=== PATIENT | female | born 1990 | race Caucasian/White ===

== ENCOUNTER 2019-12-13 04:17 | Day surgery (SDC) | payer BC ==
[2019-12-12 08:57] VITALS: BMI 21.1
--- OUTSIDE RECORDS SUMMARY | 2019-12-13 04:20 | XMS ---
:1990 Author Organization [facility] Support Name Relationship Address Phone UE, UNEMPLOYED Unavailable Unavailable Unavailable UE Unavailable Unavailable Unavailable DEVAUGHN LOZADA [address] [place] [address] DEVAUGHN LOZADA spouse Unavailable Unavailable NONE PER PT, NONE PER PT Unavailable [address] [facility] [phone] [place] [address] Re-disclosure Warning The records that you are about to access may contain information from federally- assisted alcohol or drug abuse programs. If such information is present, then the following federally mandated warning applies: This information has been disclosed to you from records protected by federal confidentiality rules (42 CFR part 2). The federal rules prohibit you from making any further disclosure of this information unless further disclosure is expressly permitted by the written consent of the person to whom it pertains or as otherwise permitted by 42 CFR part 2. A general authorization for the release of medical or other information is NOT sufficient for this purpose. The Federal rules restrict any use of the information to criminally investigate or prosecute any alcohol or drug abuse patient.The records that you are about to access may contain highly sensitive health information, the redisclosure of which is protected by Article 27-F of the [facility] Public Health law. If you continue you may haveaccess to information: Regarding HIV / AIDS; Provided by facilities licensed or operated by the [facility] Office of Mental Health; or Provided by the [facility] Office for People With Developmental Disabilities. If such information is present, then the following [facility] mandated warning applies: This information has been disclosed to you from confidential records which are protected by state law. State law prohibits you from making any further disclosure of this information without the specific written consent of the person to whom it pertains, or as otherwise permitted by law. Any unauthorized further disclosure in violation of state law may result in a fine or senior care sentence or both. A general authorization for the release of medical or other information is NOT sufficient authorization for further disclosure. Insurance Providers Payer name Policy type Policy ID Covered Covered green party's Policy P fely / Coverage green party ID relationship to [place] Inf ormation type [place] OUT OF [id number] S [id number] STATE Medicaid GME Medicaid [id number] 1 [id number] R Medicaid Medicaid [id number] MVP Medicaid Medicaid [id number] 1 [id number] Results ID Date Data Source [id number] 12/08/2019 05:40:00 PM EDT [facility] Name Value Range Interpretation Description Data Sup porting Code Source(s) Document(s ) SARS [facility] coronavirus 2 RNA This lab was ordered by [facility] and reported by [facility]. Procedure
[2019-12-13] MEDS ORDERED: ACETAMINOPHEN 325 MG TABLET (FP) PO PRN (12:08)
[2019-12-13] MEDS ORDERED: IBUPROFEN 400 MG TABLET (FP) PO PRN (12:08)
[2019-12-13] MEDS ORDERED: ONDANSETRON 4 MG/2 ML VIAL IVPUSH PRN (12:09)
--- NOTE | 2019-12-13 12:16 | HP ---
Admitting History and Physical - Admission History of Present Illness: 29 yo with hx/o KIET 2 / high grade dysplasia for LEEP Limitations to Obtaining History: No Limitations - Past Medical History Cardiovascular: No: HTN Pulmonary: No: Asthma ...LMP: 11/23/19 Additional Past Medical History: [employer]: pap smear 09/2019 ASCUS, cannot r/o HGSIL Colposcopy 11/06/2019: 6:00 KIET 1; 12:00CIN 2; 11:00 KIET 2; ECC - minute fragments of dysplastic squamous cells, fragment of benign cervical gland - Past Surgical History Additional Past Surgical History: L thumb surgery at age 11 - Smoking History Smoking history: Never smoked Home Medications - Allergies Allergies/Adverse Reactions: Allergies Allergy/AdvReac Type Severity Reaction Status Date / Time No Known Allergies Allergy Verified 12/13/19 11:06 - Home Medications Home Medications: Ambulatory Orders Elderberry Fruit and Flower [Black Elderberry 575 mg Cap] 1 each PO DAILY 12/13/19 Multivitamins [Tab-A-Vit -] 1 tab PO DAILY 12/13/19 Family Medical History Family History: Denies Review of Systems - Review of Systems Constitutional: reports: No Symptoms Respiratory: reports: No Symptoms Gastrointestinal: reports: No Symptoms Genitourinary: reports: No Symptoms Endocrine: reports: No Symptoms Psychiatric: reports: No Symptoms Physical Examination Vital Signs: Vital Signs Temperature 98.2 F 12/13/19 11:02 Pulse Rate 75 12/13/19 11:02 Respiratory Rate 20 12/13/19 11:02 Blood Pressure 106/68 12/13/19 11:02 O2 Sat by Pulse Oximetry (%) 100 12/13/19 11:02 Constitutional: Yes: Well Nourished, No Distress, Calm Respiratory: Yes: Regular Gastrointestinal: Yes: Normal Bowel Sounds, Soft Edema: No Assessment/Plan 29 yo with KIET 2 - moderate/high grade cervical dysplaisa for LEEP 1. Preop labs reviewed 2. Consents reviewed and signed. Reviewed risks including but not limited to infection, bleeding, damage to vagina and surrounding organs, risk of cervical stenosis and impotence in future pregnancies 3. No antibiotics indicated 4. REviewed postop care, pelvic rest, follow up appointment in 3-4 wks 5. Proceed to OR
[2019-12-13] MEDS ORDERED: LIDOCAINE HCL/PF 2% SDV 5ML VIAL ONE (12:32)
[2019-12-13] MEDS ORDERED: PROPOFOL 20 ML ONE (12:32)
[2019-12-13] MEDS ORDERED: MIDAZOLAM HCL 2 MG/2 ML SINGLE DOSE VIAL ONE (12:33)
[2019-12-13] MEDS ORDERED: DEXAMETHASONE SOD PHOSPHATE 4 MG/1 ML VIAL ONE (12:50)
[2019-12-13] MEDS ORDERED: KETOROLAC TROMETHAMINE 30 MG/1 ML VIAL ONE (12:50)
[2019-12-13] MEDS ORDERED: oxyCODONE HCL 5 MG TABLET PO PRN (13:27)
[2019-12-13] MEDS ORDERED: LACTATED RINGERS SOLUTION 1,000 ML IV SCH (13:30)
--- NOTE | 2019-12-13 14:00 | OP ---
Operative Note - Note: Operative Date: 12/13/19 Pre-Operative Diagnosis: KIET 2; moderate/highgrade dysplasia Findings: acetowhite area at 12, 6; hyperememic area at 12:00 Post-Operative Diagnosis: Same as Pre-op Surgeon: Sommer Aleman Anesthesiologist/CREAM GATHERER: Tammy Verma Anesthesia: General Specimens Removed: cervix at 12, cervix at 6, ECC Estimated Blood Loss (mls): 30 Fluid Volume Replaced (mls): 500 Operative Report Dictated: Yes
[2019-12-13 14:10] VITALS: TEMP 97.3
[2019-12-13 14:51] VITALS: BP 115/70; PULSE 59
--- NOTE | 2019-12-14 15:35 | OP ---
DATE OF OPERATION: 12/13/2019 SURGEON: Flaquito Aleman MD ANESTHESIA: Tammy Verma MD, general anesthesia. SURGERY: Loop electrosurgical excisional procedure and colposcopy. DIAGNOSIS: cervical intraepithelial neoplasia grade 2, moderate and high-grade dysplasia. FLUIDS GIVEN: 500. ESTIMATED BLOOD LOSS: 30. INDICATIONS: The patient is a 29-year-old with a history of KIET-2 on biopsy, for LEEP procedure. Risks, benefits, alternatives, and complications of procedure were discussed, including infection, bleeding, damage to vagina or surrounding organs, risk of cervical incompetence, and cervical stenosis. She expressed understanding and was brought to the operating room. DESCRIPTION: When anesthesia was found to be adequate, patient was prepped and draped in normal sterile fashion in dorsal lithotomy position using Livan stirrups. A coated speculum was placed in the vagina. Acetic acid was placed on the patient's cervix and Lugol's solution was placed on the cervix. Acetowhite area was noted at 12 o'clock. A 2-cm lesion was noted at 12 o'clock. Acetowhite changes were noted at 6 o'clock. A 2 x 1 cm loop electrode was used to excision a portion of the cervix at 12 o'clock and 6 o'clock. Bleeding was noted. Rollerball was used to cauterize the cervical bed. ECC was performed. Monsel's was placed and Surgicel was placed in the patient's cervical bed. All instruments were removed from the patient's vagina. The patient was awoken from anesthesia, brought to the recovery room in stable condition. FLAQUITO ALEMAN M.D. [id number]
--- NOTE | 2019-12-18 15:06 | PATH ---
Surgical Pathology Report Patient Name: TRANG WHITAKER [facility]. Rec. #: [id number] /Age/Gender: 1990 (Age: 29) / F Account: [id number] Location: [facility] SURGICAL Taken: 12/13/2019 Received: 12/14/2019 Reported: 12/18/2019 Physicians: Sommer Aleman Specimen(s) Received A: CERVIX, 12:00 B: CERVIX, 6:00 C: ECC Clinical History Moderate cervical dysplasia Final Diagnosis A. CERVIX, 12:00, LOOP ELECTROSURGICAL EXCISION PROCEDURE (LEEP)/CONE BIOPSY: HIGH GRADE SQUAMOUS INTRAEPITHELIAL LESION (HSIL/ CERVICAL INTRAEPITHELIAL NEOPLASIA 3/KIET 3) WITH GLANDULAR INVOLVEMENT. LOW GRADE SQUAMOUS INTRAEPITHELIAL LESION (LSIL) PRESENT. SURGICAL RESECTION MARGINS: FOCALLY POSITIVE FOR LSIL (ECTOCERVIX), NEGATIVE FOR HSIL. TRANSFORMATION ZONE: PRESENT. SEE COMMENT. B. CERVIX, 6:00, LOOP ELECTROSURGICAL EXCISION PROCEDURE (LEEP)/CONE BIOPSY: HIGH GRADE SQUAMOUS INTRAEPITHELIAL LESION (HSIL/CERVICAL INTRAEPITHELIAL NEOPLASIA 2/KIET 2) WITH FOCAL GLANDULAR INVOLVEMENT. LOW GRADE SQUAMOUS INTRAEPITHELIAL LESION (LSIL) PRESENT. SURGICAL RESECTION MARGINS: CANNOT BE ACCURATELY ASSESSED, SEE COMMENT. TRANSFORMATION ZONE: PRESENT. SEE COMMENT. C. ENDOCERVICAL CURETTINGS, DILATION AND CURETTAGE: FRAGMENTS OF PROLIFERATIVE ENDOMETRIUM AND BENIGN ENDOCERVICAL TISSUE. NO DYSPLASIA IDENTIFIED. Comment: Immunohistochemical stains performed (on blocks A1 and B2) at [facility] [place] [place] ([id number]) and interpreted at [facility] for p16 shows diffuse, strong, positive staining. Ki-67 shows positive nuclear staining focally spanning full thickness of the epithelium. Histomorphology and staining pattern support the above diagnosis. Part B, Margins cannot be accurately assessed due to presence of detached fragments with high grade dysplasia. Suggest clinical correlation. Case seen in intradepartmental review with consensus on diagnosis. Findings discussed with Dr. Aleman, 12/18/2019. Positive and negative controls (internal if applicable) show appropriate results. Electronically Signed Salena Prieto M.D. Gross Description A. Received in formalin labeled "cervix at 12:00," is a 1.8 x 1.4 x 0.7 cm antunez portion of soft tissue, consistent with a portion of cervix. The specimen is inked blue and serially sectioned. The specimen is entirely submitted in 2 cassettes. B. Received in formalin labeled "cervix at 6:00," is a 2.3 x 1.0 x 0.5 cm antunez portion of soft tissue, consistent with a portion of cervix. The specimen is inked blue and serially sectioned. The specimen is entirely and sequentially submitted in 3 cassettes. C. Received in formalin labeled "endocervical curettings," is a 1.2 x 1.0 x 0.2 cm aggregate of antunez-brown soft tissue fragments admixed with blood-tinged mucous. The formalin is filtered and the specimen is entirely submitted in one cassette. 12/14/2019 [facility]12/14/2019
== END 2019-12-13 14:55 | disposition home or self-care (01) ==
LOC: JASU-SURG 04:17
PROVIDERS: ATTEND Obstetrics & Gynecology
PROC: 0UBC7ZX Excision of Cervix, Via Natural or Artificial Opening, Diagnostic (ICD-10-PCS; principal; 2019-12-13 12:00)
DX: D06.0 Carcinoma in situ of endocervix (principal)
CPT/HCPCS: 36415; 84703; 86850; 86900; 86901; 88305-TC; 94760

== ENCOUNTER 2022-02-23 17:15 | Inpatient (IN) | payer BC ==
[2022-02-23] MEDS ORDERED: DINOPROSTONE 10 MG VAGINAL SUPPOSITORY VG ONE (18:17)
[2022-02-23 18:22] VITALS: BMI 24.8
[2022-02-23 18:37] LABS: BASO % 0.2 % (0-2.0); EOS % 0.1 % (0-4.5); HEMATOCRIT 37.3 % (32.4-45.2); HEMOGLOBIN 12.9 GM/dL (10.7-15.3); LYMPH % 13.6 % (8-40); MCH 30.3 pg (25.7-33.7); MCHC 34.6 g/dl (32.0-36.0); MEAN CELL VOLUME 87.5 fl (80-96); MEAN PLT VOLUME 9.2 fl (7.5-11.1); MONO % 6.8 % (3.8-10.2); NEUT % 79.3 % (42.8-82.8); PLATELET COUNT 203 10^3/uL (134-434); RBC 4.26 M/mm3 (3.60-5.2); RDW 14.1 % (11.6-15.6); WHITE BLOOD COUNT 7.6 K/mm3 (4.0-10.0)
[2022-02-23 18:46] LABS: INR 0.98 (0.83-1.09); PROTHROMBIN TIME (PATIENT) 11.3 SEC (9.7-13.0)
[2022-02-23 19:00] LABS: BLOOD UREA NITROGEN 8.8 mg/dL (7-18); CALCIUM 9.2 mg/dL (8.5-10.1)
[2022-02-23] MEDS: DEXTROSE 5%-LACTATED RINGERS 1,000 ML IV SCH (19:00)
[2022-02-23 19:04] LABS: CREATININE 0.7 mg/dL (0.55-1.3)
[2022-02-23] MEDS ORDERED: OXYTOCIN 30 UNITS in 0.9% NS 30 UNIT/500 ML INFUS.BAG IVPB ONE (19:31)
[2022-02-23] MEDS: OXYTOCIN 30 UNITS in 0.9% NS 30 UNIT/500 ML INFUS.BAG IVPB SCH (19:45)
[2022-02-24] MEDS ORDERED: OXYTOCIN 30 UNITS in 0.9% NS 30 UNIT/500 ML INFUS.BAG IVPB ONE ×2 (06:20→23:52)
[2022-02-24] MEDS: DEXTROSE 5%-LACTATED RINGERS 1,000 ML IV SCH (09:45)
[2022-02-24] MEDS ORDERED: PROMETHAZINE HCL 25 MG/1 ML VIAL IVPUSH ONE (10:27)
[2022-02-24] MEDS ORDERED: BUTORPHANOL TARTRATE 2 MG/ML VIAL IVPUSH ONE (10:27)
[2022-02-24] MEDS ORDERED: BUTORPHANOL TARTRATE 2 MG/ML VIAL ONE (10:30)
[2022-02-24] MEDS ORDERED: PROMETHAZINE HCL 25 MG/1 ML VIAL ONE (10:30)
[2022-02-24] MEDS: ELECTROLYTE-148 SOLN 1,000 ML IV SCH (18:00)
[2022-02-24] MEDS ORDERED: FENTANYL/BUPIVACAINE/NS/PF - PCEA - 50 ML DISP.SYRIN EP ONE ×2 (18:03→23:26)
[2022-02-24] MEDS ORDERED: BUPIVACAINE HCL/PF 0.25% (2.5MG/ML) 10 ML VIAL ONE (18:20)
[2022-02-24] MEDS ORDERED: FENTANYL CITRATE/PF 50 MCG/ML VIAL ONE (18:20)
[2022-02-24] MEDS: FENTANYL/BUPIVACAINE/NS/PF - PCEA - 50 ML DISP.SYRIN EP SCH ×2 (18:35→23:30)
[2022-02-24] MEDS ORDERED: NALOXONE HCL 0.4 MG/ML VIAL IVPUSH PRN (18:46)
[2022-02-25] MEDS: OXYTOCIN 30 UNITS in 0.9% NS 30 UNIT/500 ML INFUS.BAG IVPB SCH
[2022-02-25] MEDS: ELECTROLYTE-148 SOLN 1,000 ML IV SCH ×2 (01:00→06:30)
[2022-02-25] MEDS ORDERED: FENTANYL/BUPIVACAINE/NS/PF - PCEA - 50 ML DISP.SYRIN EP ONE (03:57)
[2022-02-25] MEDS: FENTANYL/BUPIVACAINE/NS/PF - PCEA - 50 ML DISP.SYRIN EP SCH (04:00)
[2022-02-25] MEDS ORDERED: OXYTOCIN 20 UNITS in 0.9% NS 20 UNIT/1,000 ML INFUS.BAG IV ONE (05:29)
[2022-02-25] MEDS ORDERED: LIDOCAINE HCL 1% PRESERVATIVE FREE - 30ML VIAL ONE (07:15)
[2022-02-25 07:23] VITALS: RESP 18
[2022-02-25] MEDS ORDERED: IBUPROFEN 600 MG TABLET (FP) PO PRN (07:35)
[2022-02-25] MEDS ORDERED: WITCH HAZEL 50% (TUCKS) 40 PAD/JAR PAD TP PRN (07:35)
[2022-02-25] MEDS ORDERED: ACETAMINOPHEN 325 MG TABLET (FP) PO PRN (07:35)
[2022-02-25] MEDS ORDERED: BENZOCAINE 20% 57 GM BOTTLE TP PRN (07:35)
[2022-02-25] MEDS ORDERED: METHYLERGONOVINE MALEATE 0.2 MG/1 ML AMP IM PRN (07:35)
[2022-02-25] MEDS ORDERED: BISACODYL 10 MG SUPP.RECT RC PRN (07:35)
[2022-02-25] MEDS ORDERED: BENZOCAINE 28 GM HEMORRHOIDAL OINTMENT TP PRN (07:35)
[2022-02-25] MEDS ORDERED: OXYTOCIN 20 UNITS in 0.9% NS 20 UNIT/1,000 ML INFUS.BAG IV SCH (07:45)
[2022-02-25 09:15] LABS: CORD BASE EXCESS -7.8 mmol/L (0-2); CORD HCO3 17.4 mmHg (20-29); CORD PCO2 34.7 mmHg (30-78); CORD pH 7.317 (7.14-7.44)
[2022-02-25 09:17] LABS: CORD BASE EXCESS -4.1 mmol/L (0-2); CORD HCO3 21.4 mmHg (20-29); CORD PCO2 40.7 mmHg (30-78); CORD pH 7.338 (7.14-7.44)
[2022-02-26 10:09] LABS: BASO % 0.2 % (0-2.0); EOS % 0.4 % (0-4.5); HEMATOCRIT 35.1 % (32.4-45.2); HEMOGLOBIN 11.9 GM/dL (10.7-15.3); MCH 29.9 pg (25.7-33.7); MCHC 33.8 g/dl (32.0-36.0); MEAN CELL VOLUME 88.5 fl (80-96); MEAN PLT VOLUME 9.1 fl (7.5-11.1); MONO % 5.6 % (3.8-10.2); NEUT % 80.8 % (42.8-82.8); PLATELET COUNT 181 10^3/uL (134-434); RBC 3.97 M/mm3 (3.60-5.2); RDW 14.2 % (11.6-15.6); WHITE BLOOD COUNT 10.3 K/mm3 (4.0-10.0)
[2022-02-26] MEDS ORDERED: SENNOSIDES/DOCUSATE COMBO (SENNA PLUS) TABLET (UD) PO PRN (22:00)
[2022-02-27 09:10] VITALS: BP 103/64; PULSE 77; TEMP 98.1
== END 2022-02-27 11:30 | disposition home or self-care (01) | DRG 807 ==
LOC: JLDR 17:15 → J3W 02-25 09:00
PROVIDERS: ADMIT Obstetrics & Gynecology; ATTEND Obstetrics & Gynecology
PROC: 0HQ9XZZ Repair Perineum Skin, External Approach (ICD-10-PCS; principal; 2022-02-25)
PROC: 10E0XZZ Delivery of Products of Conception, External Approach (ICD-10-PCS; 2022-02-25)
DX: O41.03X0 Oligohydramnios, third trimester, not applicable or unspecified (principal); Z37.0 Single live birth; O69.81X0 Labor and delivery complicated by cord around neck, without compression, not applicable or unspecified; O70.0 First degree perineal laceration during delivery; Z3A.37 37 weeks gestation of pregnancy
CPT/HCPCS: 36415; 36600; 59409; 80048; 82803; 85025; 85610; 85730; 86780; 86850; 86900; 86901; C9803-CS; U0003; U0005